=== PATIENT | male | born 1985 | race Caucasian/White ===

== ENCOUNTER 2016-08-20 14:14 | Emergency (ER) | payer MEDICAID, OTHER ==
--- NOTE | 2016-08-20 14:46 | Emergency Department Record ---
History of Present Illness - General Chief complaint: Head Injury Stated complaint: HEAD INJURY/?SEIZURE Time Seen by Provider: 08/20/16 14:40 Source: Patient Mode of Arrival: Ambulatory Limitations: No limitations Travel/Exposure to [facility] Within 21 Days of Symptoms: No - History of Present Illness Initial comments: 30 yo male presents to ED following a witnessed seizure, reports that he has not missed any dosages of his Keppra. Patient reports that his last seizure was over 1 year ago. Patient was reportedly very confused after his last seizure, but his symptoms have greatly improved per his co-worker at the bedside. MD Complaint: Other (seizure) Onset/Timin -: Minutes(s) Mechanism of Injury: Other (seizure) Location: Frontal Previous Trauma to this Area: No Place: Work, Outdoors Radiation: None Severity: Mild Quality: Aching Consistency: Now resolved Provoking factors: Other Other Injuries: None Associated Symptoms: Confusion - Related Data Home Medications Medication Instructions Recorded Confirmed Last Taken Levetiracetam [Keppra Xr] 500 mg PO BID #60 05/30/15 08/20/16 08/20/16 14:00 Allergies/Adverse reactions: Allergies Allergy/AdvReac Type Severity Reaction Status Date / Time No Known Allergies Allergy Unverified 05/30/15 14:13 Travel Screening - Travel/Exposure Within Last 30 Days Have you traveled within the last 30 days?: No Review of Systems Constitutional: Denies: Chills, Fever, Malaise, Night sweats Eyes: Denies: Eye discharge, Eye pain ENT: Denies: Congestion, Ear pain, Epistaxis Respiratory: Denies: Cough, Dyspnea Cardiovascular: Denies: Chest pain, Dyspnea on exertion Endocrine: Denies: Fatigue, Heat or cold intolerance Gastrointestinal: Denies: Abdominal pain, Nausea, Vomiting Genitourinary: Denies: Hematuria, Incontinence, Retention Musculoskeletal: Denies: Arthralgia, Back pain, Gout, Joint swelling Skin: Denies: Bruising, Change in color, Other Neurological: Reports: Headache, Seizure. Denies: Confusion Psychiatric: Denies: Anxiety Hematological/Lymphatic: Denies: Anemia, Blood Clots Past Medical History - SOCIAL HISTORY Smoking Status: Current every day smoker Alcohol Use: None Drug Use: None - RESPIRATORY Hx Respiratory Disorders: No - CARDIOVASCULAR Hx Cardio Disorders: No - NEURO Hx Neuro Disorders: Yes Hx Seizures: Yes - GI Hx GI Disorders: No - Hx Genitourinary Disorders: No - ENDOCRINE Hx Endocrine Disorders: No - MUSCULOSKELETAL Hx Musculoskeletal Disorders: No - PSYCH Hx Psych Problems: No - HEMATOLOGY/ONCOLOGY Hx Hematology/Oncology Disorders: No Family Medical History Any Significant Family History?: No Physical Exam - General General Appearance: Alert, Oriented x3, Cooperative, No acute distress Limitations: No limitations - Head Head exam: Atraumatic, Normocephalic, Normal inspection Head exam detail: negative: Abrasion, Contusion, Black's sign, General tenderness, Hematoma, Laceration - Eye Eye exam: Normal appearance. negative: Conjunctival injection, Periorbital swelling, Periorbital tenderness, Scleral icterus - ENT Ear exam: negative: Auricular hematoma, Auricular trauma Nasal Exam: negative: Active bleeding, Discharge, Dried blood, Foreign body Mouth exam: Other (no tongue or oral injury on examination). negative: Drooling , Laceration, Muffled voice, Tongue elevation - Neck Neck exam: Normal inspection. negative: Meningismus, Tenderness - Respiratory Respiratory exam: Normal lung sounds bilaterally. negative: Rales, Respiratory distress, Rhonchi, Stridor - Cardiovascular Cardiovascular Exam: Normal rhythm, Normal heart sounds, Tachycardia - GI/Abdominal GI/Abdominal exam: Soft. negative: Rebound, Rigid, Tenderness - Rectal Rectal exam: Deferred - exam: Deferred - Extremities Extremities exam: Normal inspection. negative: Calf tenderness, Pedal edema, Tenderness - Back Back exam: Denies: CVA tenderness (R), CVA tenderness (L) - Neurological Neurological exam: Alert, CN II-XII intact, Oriented X3. negative: Motor sensory deficit - Psychiatric Psychiatric exam: Normal affect, Normal mood - Skin Skin exam: Normal color. negative: Abrasion Type of lesion: negative: abrasion Course Vital Signs 08/20/16 14:21 Temperature 98.0 F Pulse Rate 129 H Respiratory 20 Rate Blood Pressure 143/84 Pulse Ox 98 - Reevaluation(s) Reevaluation #1: 08/20/16 14:43 On examination, the patient is now alert and oriented x 3, follows all instructions, and denies any focal weakness or neurological deficit on examination. Patient reports mild fatigue following his seizure which is normal for him. Patient has no signs of traumatic head injury on examination, and does not appear to warrant imaging at this time. Patient is moving his neck in all directions spontaneously without pain. Labs are unlikely to be of benefit as well. Will monitor the patient for another 20-30 minutes and reassess. Reevaluation #2: 08/20/16 15:11 Patient reassessed, resting comfortably and at his baseline. Patient appears stable for discharge at this time. Disposition Disposition: Discharge Clinical Impression: Seizure Disposition: Home, Self-Care Condition: (2) Stable Instructions: Recurrent Seizures Adult (ED) Additional Instructions: Return to ED if if your symptoms worsen or if you have any concerns. Follow-up with your neurologist Dr. Trimble in 3-5 days as directed. Continue Keppra as prescribed. Forms: Patient Portal Access Time of Disposition: 14:47
== END 2016-08-20 15:21 | disposition home or self-care (01) ==
LOC: ER 14:14
DX: G40.909 Epilepsy, unspecified, not intractable, without status epilepticus (principal)
CPT/HCPCS: 99282

== ENCOUNTER 2017-07-07 08:20 | Emergency (ER) | payer SELFPAY ==
--- NOTE | 2017-07-07 08:32 | Emergency Department Record ---
History of Present Illness - General Chief complaint: Head Injury Stated complaint: HEAD INJURY Time Seen by Provider: 07/07/17 08:26 Source: Patient Mode of Arrival: Ambulatory Limitations: No limitations - History of Present Illness Initial comments: 31 yo male presents with neck pain and low back pain. He was hanging drywall on a ceiling. While climbing down the ladder the drywall fell hitting his head. No LOC, No nausea, vomitign, vision changes, weakness, numbness. He has right lateral neck pain and lumbar pain. No headache. No lacerations. No symptoms into the arms or legs. No abdominal pain. No chest pain. No shortness of breath. The fall off the ladder was only a few steps. MD Complaint: Head injury, Fall, Other (Cervical and Lumbar pain) Onset/Timin -: Minutes(s) Mechanism of Injury: Work related injury Location: Other Loss of Consciousness: No Previous Trauma to this Area: No Place: Work Radiation: Neck Severity: Mild Severity scale (1-10): 4 Quality: Aching Consistency: Constant Provoking factors: None known Other Injuries: None Associated Symptoms: Denies other symptoms - Related Data Allergies/Adverse reactions: Allergies Allergy/AdvReac Type Severity Reaction Status Date / Time No Known Allergies Allergy no Verified 07/07/17 08:24 allergies Travel Screening - Travel/Exposure Within Last 30 Days Have you traveled within the last 30 days?: No Review of Systems Constitutional: Denies: Chills, Fever, Malaise, Weakness Eyes: Denies: Eye discharge, Eye pain, Photophobia, Vision change ENT: Denies: Congestion, Ear pain, Epistaxis, Throat pain Respiratory: Denies: Cough, Dyspnea, Hemoptysis, Stridor, Wheezes Cardiovascular: Denies: Chest pain, Palpitations, Syncope Endocrine: Denies: Fatigue, Polyuria Gastrointestinal: Denies: Abdominal pain, Diarrhea, Nausea, Vomiting Musculoskeletal: Reports: Back pain, Myalgia, Neck pain. Denies: Arthralgia, Joint swelling Skin: Denies: Bruising, Change in color, Rash Neurological: Denies: Abnormal gait, Confusion, Headache, Numbness, Paresthesias , Seizure, Tingling, Tremors, Vertigo, Weakness Psychiatric: Denies: Anxiety, Suicidal thoughts Hematological/Lymphatic: Denies: Anemia, Easy bleeding, Easy bruising, Swollen glands Past Medical History - SOCIAL HISTORY Smoking Status: Current every day smoker Alcohol Use: None Drug Use: None - RESPIRATORY Hx Respiratory Disorders: No - CARDIOVASCULAR Hx Cardio Disorders: No - NEURO Hx Neuro Disorders: Yes Hx Seizures: Yes - GI Hx GI Disorders: No - Hx Genitourinary Disorders: No - ENDOCRINE Hx Endocrine Disorders: No - MUSCULOSKELETAL Hx Musculoskeletal Disorders: No - PSYCH Hx Psych Problems: No - HEMATOLOGY/ONCOLOGY Hx Hematology/Oncology Disorders: No Family Medical History Any Significant Family History?: No Physical Exam - General General Appearance: Alert, Oriented x3, Cooperative, No acute distress, Other ( Well appearing, relaxed, calm, no signs of discomfort, normal mental status) Limitations: No limitations - Head Head exam: Atraumatic, Normocephalic, Normal inspection Head exam detail: negative: Abrasion, Contusion, CSF otorrhea, CSF rhinorrhea, General tenderness, Hematoma, Laceration - Eye Eye exam: Normal appearance, PERRL, EOMI. negative: Conjunctival injection, Nystagmus, Periorbital swelling, Scleral icterus - ENT ENT exam: Normal exam, Mucous membranes moist, Normal orophraynx Ear exam: Normal external inspection Nasal Exam: Normal inspection Mouth exam: Normal external inspection Teeth exam: Normal inspection Throat exam: Normal inspection. negative: Tonsillar erythema, Tonsillar exudate - Neck Neck exam: Normal inspection, Full ROM, Tenderness (mid neck lateral right side , no midline bony tenderness). negative: Lymphadenopathy, Meningismus - Respiratory Respiratory exam: Normal lung sounds bilaterally. negative: Respiratory distress, Rhonchi, Stridor, Wheezes - Cardiovascular Cardiovascular Exam: Regular rate, Normal rhythm, Normal heart sounds Peripheral Pulses: 2+: Radial (R), Radial (L) - GI/Abdominal GI/Abdominal exam: Soft. negative: Distended, Guarding, Rebound, Rigid, Tenderness - Rectal Rectal exam: Deferred - exam: Deferred - Extremities Extremities exam: Normal inspection, Full ROM, Normal capillary refill. negative: Calf tenderness, Joint swelling, Pedal edema, Tenderness - Back Back exam: Reports: Normal inspection, Full ROM, Muscle spasm, Paraspinal tenderness, Tenderness, Vertebral tenderness (lower mid lumbar). Denies: CVA tenderness (R), CVA tenderness (L), Rash noted - Neurological Neurological exam: Alert, Normal gait, Oriented X3, Reflexes normal. negative: Abnormal gait, Altered, Motor sensory deficit - Psychiatric Psychiatric exam: Normal affect, Normal mood. negative: Agitated, Anxious - Skin Skin exam: Dry, Intact, Normal color, Warm. negative: Abrasion, Cyanosis, Diaphoretic, Erythema Course Vital Signs 07/07/17 08:21 Temperature 97.9 F Pulse Rate 108 H Respiratory 18 Rate Blood Pressure 136/82 Pulse Ox 98 - Reevaluation(s) Reevaluation #1: 07/07/17 08:32 Well appearing, no initial or ongoing signs of head injury. No HCT indicated. He does have new cervical pain (paraspinal) and lumbar pain. XR ordered He declined any need for pain medication such as Tylenol or Motrin 07/07/17 09:03 The XR's were reviewed. No acute fractures or abnormalities. We discussed the XR's and reasons to return to the ED Disposition Disposition: Discharge Clinical Impression: Cervical strain, acute Qualifiers: Encounter type: initial encounter Qualified Code(s): S16.1XXA - Strain of muscle, fascia and tendon at neck level, initial encounter Lumbar spine strain Qualifiers: Encounter type: initial encounter Qualified Code(s): S39.012A - Strain of muscle, fascia and tendon of lower back, initial encounter Disposition: Home, Self-Care Condition: (1) Good Instructions: Cervical Strain (ED), Low Back Strain (ED) Additional Instructions: Rest. Avoid heavy lifting today Return if any new pain, headache, dizziness or new concerns. Tylenol or Motrin may be taken for pain Forms: Patient Portal Access Time of Disposition: 09:03 Quality - Quality Measures Quality Measures: N/A - Blood Pressure Screening Does Patient Have Any of the Following: No Blood Pressure Classification: Pre-Hypertensive BP Reading Systolic Measurement: 136 Diastolic Measurement: 82 Screening for High Blood Pressure: < Pre-Hypertensive BP, F/U Documented > [ G8950] Pre-Hypertensive Follow-up Interventions: Referral to alternative/primary care provider.
--- NOTE | 2017-07-07 11:03 | RADIOLOGY REPORT ---
EXAM: CERVICAL SPINE, FIVE VIEWS HISTORY: ACUTE NONRADIATING NECK PAIN AFTER BEING KNOCKED THREE TO FOUR FEET OFF A LADDER BY FALLING DRYWALL. SORE NECK. TECHNIQUE: Five views of the cervical spine were obtained. Comparison: None. Encounter: Initial. FINDINGS: The cervical intervertebral disk spaces are maintained. No fracture or prevertebral soft tissue swelling is seen in the cervical spine. No destructive lesion evident. IMPRESSION: THE CERVICAL SPINE APPEARS NEGATIVE WITH NO DEFINITE FRACTURE IDENTIFIED. JOB NUMBER: [id number] [facility]
--- NOTE | 2017-07-07 11:05 | RADIOLOGY REPORT ---
EXAM: LUMBAR SPINE, FOUR VIEWS HISTORY: PATIENT FELL OFF A LADDER WITH THORACOLUMBAR BACK PAIN. TECHNIQUE: AP, translumbar lateral, thoracolumbar lateral, and lumbosacral lateral views were all obtained for a total of four views. Comparison: None. Encounter: Initial. FINDINGS: The lumbar intervertebral disk spaces are maintained. No definite fracture of the lumbar spine identified. Very slight tilting of the spine and pelvis to the left may simply be due positioning or spasm. IMPRESSION: THE LUMBAR SPINE APPEARS ESSENTIALLY NEGATIVE WITH NO FRACTURE IDENTIFIED. [facility]: [id number] [facility]
== END 2017-07-07 09:30 | disposition home or self-care (01) ==
LOC: ER 08:20
DX: S16.1XXA Strain of muscle, fascia and tendon at neck level, initial encounter (principal); S39.012A Strain of muscle, fascia and tendon of lower back, initial encounter; W11.XXXA Fall on and from ladder, initial encounter; Y93.H3 Activity, building and construction; Y99.0 Civilian activity done for income or pay
CPT/HCPCS: 72050; 72100; 99283

== ENCOUNTER 2018-02-12 17:30 | Emergency (ER) | payer MEDICAID, OTHER ==
[2018-02-12] MEDS ORDERED: IPRATROPIUM/ALBUTEROL (0.5MG/3MG) NEB INH ONE (18:00)
[2018-02-12] MEDS ORDERED: METHYLPREDNISOLONE PF 125MG/VIAL IM ONE (18:01)
--- NOTE | 2018-02-12 18:45 | Emergency Department Record ---
History of Present Illness - General Chief Complaint: Cough Stated Complaint: COUGHING/DION Time Seen by Provider: 02/12/18 17:53 Source: Patient Mode of Arrival: Ambulatory Limitations: No limitations - History of Present Illness Initial Comments: pt has beencoughing so hard he vomits. he has a productive cough. he feels sob MD Complaint: Cough, Nasal congestion Onset/Timin -: Days(s) Consistency: Intermittent Associated Symptoms: Cough, Nasal congestion - Related Data Previous Rx's Medication Instructions Recorded Azithromycin [Zithromax Tri-Aakash] 500 mg PO DAILY #3 tablet 02/12/18 Benzonatate [Tessalon] 2 cap PO Q8H PRN #10 cap 02/12/18 Allergies Allergy/AdvReac Type Severity Reaction Status Date / Time No Known Allergies Allergy no Verified 02/12/18 17:34 allergies Travel Screening - Travel/Exposure Within Last 30 Days Have you traveled within the last 30 days?: No - Travel/Exposure Within Last Year Have you traveled outside the [place] in the last year?: No - Additonal Travel Details Have you been exposed to anyone with a communicable illness?: No - Travel Symptoms Symptom Screening: None Review of Systems Reviewed: No additional complaints except as noted below Constitutional: Reports: As per HPI. Denies: Chills, Fever, Malaise, Night sweats, Weakness, Weight change Eyes: Reports: As per HPI. Denies: Eye discharge, Eye pain, Photophobia, Vision change ENT: Reports: As per HPI. Denies: Congestion, Dental pain, Ear pain, Epistaxis , Hearing loss, Throat pain Respiratory: Reports: As per HPI, Cough, Dyspnea, Wheezes. Denies: Hemoptysis, Stridor Cardiovascular: Reports: As per HPI. Denies: Arrhythmia, Chest pain, Dyspnea on exertion, Edema, Murmurs, Orthopnea, Palpitations, Paroxysmal nocturnal dyspnea, Rheumatic Fever, Syncope Endocrine: Reports: As per HPI. Denies: Fatigue, Heat or cold intolerance, Polydipsia, Polyuria Gastrointestinal: Reports: As per HPI. Denies: Abdominal pain, Constipation, Diarrhea, Hematemesis, Hematochezia, Melena, Nausea, Vomiting Genitourinary: Reports: As per HPI. Denies: Dysuria, Frequency, Hematuria, Incontinence, Retention, Testicular pain, Testicular mass, Urgency Musculoskeletal: Reports: As per HPI. Denies: Arthralgia, Back pain, Gout, Joint swelling, Myalgia, Neck pain Skin: Reports: As per HPI. Denies: Bruising, Change in color, Change in hair/ nails, Lesions, Pruritus, Rash Neurological: Reports: As per HPI. Denies: Abnormal gait, Confusion, Headache, Numbness, Paresthesias, Seizure, Tingling, Tremors, Vertigo, Weakness Psychiatric: Reports: As per HPI. Denies: Anxiety, Auditory hallucinations, Depression, Homicidal thoughts, Suicidal thoughts, Visual hallucinations Hematological/Lymphatic: Reports: As per HPI. Denies: Anemia, Blood Clots, Easy bleeding, Easy bruising, Swollen glands Past Medical History - SOCIAL HISTORY Smoking Status: Current every day smoker Alcohol Use: Occasional Drug Use: None - RESPIRATORY Hx Respiratory Disorders: No - CARDIOVASCULAR Hx Cardio Disorders: No - NEURO Hx Neuro Disorders: Yes Hx Seizures: Yes - GI Hx GI Disorders: No - Hx Genitourinary Disorders: No - ENDOCRINE Hx Endocrine Disorders: No - MUSCULOSKELETAL Hx Musculoskeletal Disorders: No - PSYCH Hx Psych Problems: No - HEMATOLOGY/ONCOLOGY Hx Hematology/Oncology Disorders: No Family Medical History Any Significant Family History?: No Physical Exam - General General Appearance: Alert, Oriented x3, Cooperative, Mild distress - Head Head exam: Normal inspection - Eye Eye exam: Normal appearance, PERRL, EOMI Pupils: Normal accommodation - ENT ENT exam: Normal exam, Mucous membranes moist, Normal external ear exam, Normal orophraynx Ear exam: Normal external inspection. negative: External canal tenderness Nasal Exam: Normal inspection. negative: Discharge, Sinus tenderness Mouth exam: Normal external inspection, Tongue normal Teeth exam: Normal inspection. negative: Dental caries Throat exam: Normal inspection. negative: Tonsillar erythema, Tonsillar exudate - Neck Neck exam: Normal inspection, Full ROM. negative: Tenderness - Respiratory Respiratory exam: Wheezes. negative: Respiratory distress - Cardiovascular Cardiovascular Exam: Regular rate, Normal rhythm, Normal heart sounds - GI/Abdominal GI/Abdominal exam: Soft, Normal bowel sounds. negative: Tenderness - Rectal Rectal exam: Deferred - exam: Deferred - Extremities Extremities exam: Normal inspection, Full ROM, Normal capillary refill. negative: Tenderness - Back Back exam: Reports: Normal inspection, Full ROM. Denies: Muscle spasm, Rash noted, Tenderness - Neurological Neurological exam: Alert, CN II-XII intact, Normal gait, Oriented X3 - Psychiatric Psychiatric exam: Normal affect, Normal mood - Skin Skin exam: Dry, Intact, Normal color, Warm Course Vital Signs 02/12/18 17:35 Temperature 97.9 F Pulse Rate [ 104 H Pulse Ox Probe] Respiratory 17 Rate Blood Pressure 128/72 [Left Arm] Pulse Ox 94 L Disposition Disposition: Discharge Clinical Impression: Bronchitis Disposition: Home, Self-Care Condition: (1) Good Instructions: Acute Bronchitis (ED), Wheezing (ED), How to Stop Smoking (ED) Additional Instructions: follow up with family doctor. return sooner if worse Prescriptions: Azithromycin [Zithromax Tri-Aakash] 500 mg PO DAILY #3 tablet Benzonatate [Tessalon] 2 cap PO Q8H PRN #10 cap PRN Reason: Cough Forms: Patient Portal Access, Return to Work/School Quality - Quality Measures Quality Measures: N/A - Blood Pressure Screening Does Patient Have Any of the Following: No Blood Pressure Classification: Pre-Hypertensive BP Reading Systolic Measurement: 128 Diastolic Measurement: 72 Screening for High Blood Pressure: < Pre-Hypertensive BP, F/U Documented > [ G8950] Pre-Hypertensive Follow-up Interventions: Follow-up with rescreen every year.
--- NOTE | 2018-02-14 20:28 | RADIOLOGY REPORT ---
EXAM: CHEST 2 VIEWS HISTORY: COUGH FOR TWO DAYS. TECHNIQUE: PA and lateral views. COMPARISON: None. FINDINGS: The heart size is normal. No definite acute infiltrate seen. No pleural effusion or pneumothorax evident. There are probably some small calcified right hilar lymph nodes. IMPRESSION: CHEST APPEARS ESSENTIALLY NEGATIVE WITH NO ACUTE INFILTRATE SEEN. THERE MAY BE SOME SMALL CALCIFIED RIGHT HILAR NODES PRESENT. JOB NUMBER: [id number] [facility]
== END 2018-02-12 19:02 | disposition home or self-care (01) ==
LOC: ER 17:30
DX: J20.9 Acute bronchitis, unspecified (principal); R06.2 Wheezing; F17.210 Nicotine dependence, cigarettes, uncomplicated
CPT/HCPCS: 71046; 96372; 99283; J2930